=== PATIENT | female | born 1985 | race Caucasian/White ===

== ENCOUNTER → 2019-08-08 | Outpatient (CLI) | payer OTHER | LOC: OD 11:50 | PROVIDERS: ATTEND Nurse Practitioner Primary Care | DX: Z31.83 Encounter for assisted reproductive fertility procedure cycle (principal) | CPT/HCPCS: 36415; 82670 ==

== ENCOUNTER → 2019-08-15 | Outpatient (CLI) | payer OTHER | LOC: OD 08:50 | PROVIDERS: ATTEND Nurse Practitioner Primary Care | DX: Z31.83 Encounter for assisted reproductive fertility procedure cycle (principal) | CPT/HCPCS: 36415; 82670 ==

== ENCOUNTER → 2019-08-18 | Outpatient (CLI) | payer OTHER | LOC: OD 10:52 | PROVIDERS: ATTEND Nurse Practitioner Primary Care | DX: Z31.83 Encounter for assisted reproductive fertility procedure cycle (principal) | CPT/HCPCS: 36415; 82670 ==

== ENCOUNTER → 2019-09-04 | Outpatient (CLI) | payer OTHER | LOC: OD 09:15 | PROVIDERS: ATTEND Obstetrics & Gynecology Reproductive Endocrinology | DX: Z32.00 Encounter for pregnancy test, result unknown (principal) | CPT/HCPCS: 36415; 82670; 84144; 84702 ==

== ENCOUNTER → 2019-10-06 | Outpatient (CLI) | payer OTHER | LOC: OD 08:52 | PROVIDERS: ATTEND Nurse Practitioner Primary Care | DX: Z31.83 Encounter for assisted reproductive fertility procedure cycle (principal) | CPT/HCPCS: 36415; 82670 ==

== ENCOUNTER → 2019-10-12 | Outpatient (CLI) | payer OTHER | LOC: OD 08:15 | PROVIDERS: ATTEND Nurse Practitioner Primary Care | DX: Z31.83 Encounter for assisted reproductive fertility procedure cycle (principal) | CPT/HCPCS: 36415; 82670 ==

== ENCOUNTER → 2019-10-17 | Outpatient (CLI) | payer OTHER | LOC: OD 09:33 | PROVIDERS: ATTEND Nurse Practitioner Primary Care | DX: Z31.83 Encounter for assisted reproductive fertility procedure cycle (principal) | CPT/HCPCS: 36415; 82670 ==

== ENCOUNTER → 2019-11-03 | Outpatient (CLI) | payer OTHER | LOC: OD 08:48 | PROVIDERS: ATTEND Obstetrics & Gynecology Reproductive Endocrinology | DX: Z32.00 Encounter for pregnancy test, result unknown (principal) | CPT/HCPCS: 36415; 82670; 84144; 84702 ==

== ENCOUNTER → 2019-12-19 | Outpatient (CLI) | payer OTHER | LOC: OD 09:06 | PROVIDERS: ATTEND Nurse Practitioner Primary Care | DX: Z31.83 Encounter for assisted reproductive fertility procedure cycle (principal) | CPT/HCPCS: 36415; 82670; 83002; 84144 ==

== ENCOUNTER → 2019-12-26 | Outpatient (CLI) | payer OTHER | LOC: OD 09:33 | PROVIDERS: ATTEND Nurse Practitioner Primary Care | DX: Z31.83 Encounter for assisted reproductive fertility procedure cycle (principal) | CPT/HCPCS: 36415; 82670; 83002; 84144 ==

== ENCOUNTER → 2020-01-01 | Outpatient (CLI) | payer OTHER | LOC: OD 09:20 | PROVIDERS: ATTEND Nurse Practitioner Primary Care | DX: Z31.83 Encounter for assisted reproductive fertility procedure cycle (principal) | CPT/HCPCS: 36415; 82670; 83002; 84144 ==

== ENCOUNTER → 2020-02-14 | Outpatient (CLI) | payer OTHER | LOC: OD 09:43 | PROVIDERS: ATTEND Nurse Practitioner Primary Care | DX: Z31.83 Encounter for assisted reproductive fertility procedure cycle (principal) | CPT/HCPCS: 36415; 82670; 83002; 84144 ==

== ENCOUNTER → 2020-02-20 | Outpatient (CLI) | payer SELFPAY | LOC: OD 09:30 | PROVIDERS: ATTEND Obstetrics & Gynecology Reproductive Endocrinology | DX: Z31.83 Encounter for assisted reproductive fertility procedure cycle (principal) | CPT/HCPCS: 36415; 82670; 83002; 84144 ==

== ENCOUNTER → 2020-02-27 | Outpatient (CLI) | payer OTHER | LOC: OD 10:31 | PROVIDERS: ATTEND Obstetrics & Gynecology Reproductive Endocrinology | DX: Z31.83 Encounter for assisted reproductive fertility procedure cycle (principal) | CPT/HCPCS: 36415; 82670; 83002; 84144 ==

== ENCOUNTER → 2020-03-01 | Outpatient (CLI) | payer SELFPAY | LOC: OD 09:54 | PROVIDERS: ATTEND Obstetrics & Gynecology Reproductive Endocrinology | DX: Z31.83 Encounter for assisted reproductive fertility procedure cycle (principal) | CPT/HCPCS: 36415; 82670; 84144 ==